=== PATIENT | male | born 1980 | race Caucasian/White ===

== ENCOUNTER 2020-05-18 14:26 | Emergency (ER) | payer MEDICARE ==
[~2020-05-18] VITALS: Ht 175.3 cm; Wt 65.9 kg
[2020-05-18 14:28] VITALS: BP 138/79
[2020-05-18] MEDS ORDERED: IBUP-1506 PO (14:33)
== END 2020-05-18 17:49 | disposition home or self-care (01) ==
LOC: EMS 14:34
DX: F41.9 Anxiety disorder, unspecified (principal); Z59.0 Homelessness; F17.210 Nicotine dependence, cigarettes, uncomplicated; F12.90 Cannabis use, unspecified, uncomplicated

== ENCOUNTER 2020-05-21 09:18 | Inpatient (IN) | payer MEDICARE ==
[~2020-05-21] VITALS: Ht 172.7 cm; Wt 62.9 kg
[~2020-05-21 09:18] MED LIST: IBUP-1506 PO
[2020-05-21] MEDS ORDERED: HALOPERIDOL 5 MG TABLET PO PRN (10:45)
[2020-05-21] MEDS ORDERED: ZOLPIDEM TARTRATE 10 MG TABLET PO PRN (10:45)
[2020-05-21 11:46] VITALS: BP 122/69
[2020-05-21] MEDS ORDERED: INFLUENZA VIRUS VACCINE QVS 2020-21 (6MO+)/PF 60 MCG/0.5 ML SYRINGE IM ONE (12:00)
[2020-05-21 13:10] LABS: COVID AG,FIA SOURCE NASOPHARYNGEAL
[2020-05-21 14:50] VITALS: BP 143/76
[2020-05-21 16:18] VITALS: BP 123/73
[2020-05-21] MEDS: LORazepam 2 MG TABLET PO PRN (16:37)
[2020-05-21] MEDS ORDERED: NICOTINE POLACRILEX 2 MG LOZENGE PO PRN (21:45)
[2020-05-22 06:38] VITALS: BP 134/79
[2020-05-22 08:24] VITALS: BP 126/87
[2020-05-22] MEDS: LORazepam 2 MG TABLET PO PRN ×2 (08:42→16:55)
[2020-05-22 09:32] LABS: APPEARANCE,URINE CLEAR (CLEAR); BILIRUBIN,URINE NEGATIVE (NEGATIVE); GLUCOSE, URINE (UA) NEGATIVE (NEGATIVE); KETONES,URINE NEGATIVE (NEGATIVE); LEUKOCYTE ESTERASE ,URINE NEGATIVE (NEGATIVE); NITRATE,URINE NEGATIVE (NEGATIVE); OCCULT BLOOD,URINE NEGATIVE (NEGATIVE); PH,URINE 7.5 (5.0-8.0); PROTEIN,URINE NEGATIVE (NEGATIVE); UROBILINOGEN,URINE 0.2 mg/dL (<=1.0)
[2020-05-22 09:37] LABS: AMPHET/METH SCREEN,URINE NEGATIVE (NEGATIVE); BARBITURATE SCREEN, URINE NEGATIVE (NEGATIVE); BENZODIAZEPINES SCREEN,URINE NEGATIVE (NEGATIVE); CANNABINOID SCREEN,URINE POSITIVE (NEGATIVE); COCAINE SCREEN,URINE NEGATIVE (NEGATIVE); METHADONE SCREEN, URINE NEGATIVE (NEGATIVE); OPIATE SCREEN,URINE NEGATIVE (NEGATIVE)
[2020-05-22 09:59] LABS: PHENCYCLIDINE SCREEN,URINE NEGATIVE (NEGATIVE)
[2020-05-22] MEDS ORDERED: ACETAMINOPHEN 325 MG TABLET PO PRN (10:30)
[2020-05-22] MEDS ORDERED: NICOTINE 14 MG/24 HOUR PATCH TD PRN (10:30)
[2020-05-22] MEDS ORDERED: PETROLATUM,WHITE 28 GM JELLY TP PRN (10:30)
[2020-05-22] MEDS ORDERED: GuaiFENesin/D-METHORPHAN [SUGAR-FREE] 200-20MG/10 ML SYRUP UDCUP PO PRN (10:30)
[2020-05-22] MEDS ORDERED: ALBUTEROL SULFATE HFA 90 MCG/PUFF 8 GM INHALER IH PRN (10:30)
[2020-05-22] MEDS ORDERED: CloNIDine HCL 0.1 MG TABLET PO PRN (10:30)
[2020-05-22] MEDS ORDERED: MAG HYDROX/AL HYDROX/SIMETH ES 30 ML SUSPENSION UDCUP PO PRN (10:30)
[2020-05-22] MEDS ORDERED: MAGNESIUM HYDROXIDE SUSPENSION 30 ML UDCUP PO PRN (10:30)
[2020-05-22] MEDS ORDERED: ONDANSETRON HCL 4 MG TABLET PO PRN (10:30)
[2020-05-22] MEDS ORDERED: DOCUSATE SODIUM 100 MG CAPSULE PO PRN (10:30)
[2020-05-22] MEDS ORDERED: LOPERAMIDE HCL 2 MG CAPSULE PO PRN (10:30)
[2020-05-22] MEDS: ESCITALOPRAM OXALATE 10 MG TABLET PO SCH (13:14)
[2020-05-22 16:04] VITALS: BP 126/80
[2020-05-22] MEDS: IBUPROFEN 400 MG TABLET PO PRN (16:55)
[2020-05-23 05:32] VITALS: BP 120/82
[2020-05-23 07:41] LABS: BASOPHILS % (AUTO) 0.5 % (0.0-2.0); EOSINOPHILS % (AUTO) 0.9 % (1.0-6.0); HEMATOCRIT 45.4 % (41-53); HEMOGLOBIN 15.4 g/dL (13.5-17.5); LYMPHOCYTES # (AUTO) 1.7 K/uL (1.0-4.8); LYMPHOCYTES % (AUTO) 20.1 % (22.0-44.0); MEAN CORPUSCULAR HGB CONC 33.8 G/dL (31.0-37.0); MEAN CORPUSCULAR VOLUME 92 fL (80-100); MONOCYTES # (AUTO) 0.6 K/uL (0.1-1.0); MONOCYTES % (AUTO) 7.5 % (2.0-9.0); NEUTROPHILS # (AUTO) 5.9 K/uL (1.8-7.7); PLATELET COUNT (AUTO) 270 K/uL (150-450); RED BLOOD CELL COUNT(AUTO) 4.96 MIL/uL (4.50-5.90); RED CELL DISTRIBUTION WIDTH 14.1 % (11.5-14.5)
[2020-05-23 08:31] VITALS: BP 126/68
[2020-05-23 08:32] LABS: ALANINE AMINOTRANSFERASE 28 U/L (12-78); ALBUMIN 3.7 g/dL (3.4-5.0); ALKALINE PHOSPHATASE 116 U/L (46-116); ANION GAP 8 mmol/L (8-16); ASPARTATE AMINOTRANSFERASE 15 U/L (15-37); BILIRUBIN,TOTAL 0.5 mg/dL (0.1-1.0); CALCIUM, TOTAL 8.7 mg/dL (8.8-10.5); CARBON DIOXIDE 26 mmol/L (22-29); CHLORIDE 106 mmol/L (98-107); CHOL/HDL RATIO 5.7 (4.2-7.3); CHOLESTEROL 170 mg/dL (131-200); CREATININE 0.96 mg/dL (0.60-1.30); GLOMERULAR FILTR. RATE CALC > 60 mL/min (>60); GLUCOSE,RANDOM 95 mg/dL (70-110); HDL CHOLESTEROL 30 mg/dL (40-60); LDL CHOL (CALC.) 122 mg/dL (0-130); POTASSIUM 4.7 mmol/L (3.5-5.1); SODIUM SERUM 140 mmol/L (136-145); TOTAL PROTEIN, SERUM 6.8 g/dL (6.4-8.2); TRIGLYCERIDES 90 mg/dL (15-150); UREA NITROGEN, BLOOD 16 mg/dL (7-18)
[2020-05-23 08:54] LABS: FREE T4 (FREE THYROXINE) 0.85 ng/dL (0.76-1.46); THYROID STIMULATING HORMONE 1.35 uIU/mL (0.36-3.74)
[2020-05-23] MEDS: ESCITALOPRAM OXALATE 10 MG TABLET PO SCH (09:04)
[2020-05-23 16:09] VITALS: BP 137/83
[2020-05-24 06:35] VITALS: BP 128/78
[2020-05-24] MEDS: ESCITALOPRAM OXALATE 10 MG TABLET PO SCH (08:22)
[2020-05-24 08:42] VITALS: BP 126/77
[2020-05-24 16:07] VITALS: BP 119/78
[2020-05-25 00:09] VITALS: BP 115/71
[2020-05-25 08:11] VITALS: BP 139/77
[2020-05-25] MEDS: ESCITALOPRAM OXALATE 10 MG TABLET PO SCH (08:12)
[2020-05-25 16:15] VITALS: BP 130/82
[2020-05-25] MEDS: IBUPROFEN 400 MG TABLET PO PRN (16:15)
[2020-05-26 06:26] VITALS: BP 130/83
[2020-05-26 08:18] LABS: COVID AG,FIA SOURCE NASOPHARYNGEAL
[2020-05-26] MEDS: ESCITALOPRAM OXALATE 10 MG TABLET PO SCH (08:18)
[2020-05-26 08:21] VITALS: BP 132/82
[2020-05-26 16:10] VITALS: BP 131/82
[2020-05-26] MEDS: IBUPROFEN 400 MG TABLET PO PRN (16:12)
[2020-05-26 16:50] VITALS: BP 131/82
[2020-05-27 06:12] VITALS: BP 128/84
[2020-05-27 08:18] VITALS: BP 120/68
[2020-05-27] MEDS: ESCITALOPRAM OXALATE 10 MG TABLET PO SCH (08:37)
[2020-05-27] MEDS: IBUPROFEN 400 MG TABLET PO PRN ×2 (10:58→19:06)
[2020-05-27 16:32] VITALS: BP 134/86
[2020-05-27 18:52] VITALS: BP 133/77
[2020-05-28 08:19] VITALS: BP 132/65
[2020-05-28] MEDS: ESCITALOPRAM OXALATE 10 MG TABLET PO SCH (09:42)
[2020-05-28] MEDS: IBUPROFEN 400 MG TABLET PO PRN ×2 (10:52→18:59)
[2020-05-28 16:12] VITALS: BP 135/85
[2020-05-29 01:21] VITALS: BP 126/77
[2020-05-29] MEDS: MULTIVITAMINS WITH MINERALS, THERAPEUTIC TABLET PO SCH (08:17)
[2020-05-29] MEDS: ESCITALOPRAM OXALATE 10 MG TABLET PO SCH (08:17)
[2020-05-29 08:50] VITALS: BP 130/90
[2020-05-29] MEDS ORDERED: MULTIVITAMINS, THERAPEUTIC TABLET PO SCH (09:00)
[2020-05-29] MEDS ORDERED: OMEGA-3/DHA/EPA/FISH OIL 1,000 MG CAPSULE PO SCH (09:00)
[2020-05-29 14:10] VITALS: BP 128/84
[2020-05-29] MEDS: IBUPROFEN 400 MG TABLET PO PRN ×2 (14:24→22:24)
[2020-05-29 16:45] VITALS: BP 119/76
[2020-05-29 22:21] VITALS: BP 127/82
[2020-05-30 04:16] VITALS: BP 122/83
[2020-05-30 08:23] VITALS: BP 128/77
[2020-05-30] MEDS: ESCITALOPRAM OXALATE 10 MG TABLET PO SCH (09:13)
[2020-05-30] MEDS: MULTIVITAMINS WITH MINERALS, THERAPEUTIC TABLET PO SCH (09:13)
[2020-05-30] MEDS: LORazepam 2 MG TABLET PO PRN (09:16)
[2020-05-30 16:20] VITALS: BP 122/79
[2020-05-30] MEDS: IBUPROFEN 400 MG TABLET PO PRN (16:20)
[2020-05-31 06:43] VITALS: BP 117/77
[2020-05-31 08:42] VITALS: BP 125/76
[2020-05-31] MEDS: MULTIVITAMINS WITH MINERALS, THERAPEUTIC TABLET PO SCH (09:36)
[2020-05-31] MEDS: ESCITALOPRAM OXALATE 10 MG TABLET PO SCH (09:36)
[2020-05-31 16:06] VITALS: BP 130/78
[2020-05-31] MEDS: IBUPROFEN 400 MG TABLET PO PRN (16:06)
[2020-06-01 06:36] VITALS: BP 131/84
[2020-06-01 08:35] VITALS: BP 135/80
[2020-06-01] MEDS: ESCITALOPRAM OXALATE 10 MG TABLET PO SCH (08:54)
[2020-06-01] MEDS: MULTIVITAMINS WITH MINERALS, THERAPEUTIC TABLET PO SCH (08:55)
[2020-06-01 11:47] VITALS: BP 126/74
[2020-06-01] MEDS: IBUPROFEN 400 MG TABLET PO PRN ×2 (11:47→20:52)
[2020-06-01 16:38] VITALS: BP 131/73
[2020-06-01 20:53] VITALS: BP 126/81
[2020-06-02 00:51] VITALS: BP 134/90
[2020-06-02 08:19] LABS: COVID AG,FIA SOURCE NASOPHARYNGEAL
[2020-06-02] MEDS: ESCITALOPRAM OXALATE 10 MG TABLET PO SCH (08:24)
[2020-06-02] MEDS: MULTIVITAMINS WITH MINERALS, THERAPEUTIC TABLET PO SCH (08:24)
[2020-06-02 08:36] VITALS: BP 143/83
[2020-06-02] MEDS ORDERED: ESCI-8 PO (09:00)
== END 2020-06-02 12:13 | disposition home or self-care (01) | DRG 885 ==
LOC: B2X 10:50
DX: F33.2 Major depressive disorder, recurrent severe without psychotic features (principal); F79 Unspecified intellectual disabilities; R45.851 Suicidal ideations; G89.29 Other chronic pain; Z59.0 Homelessness; R00.0 Tachycardia, unspecified; Z20.822 Contact with and (suspected) exposure to COVID-19; M54.9 Dorsalgia, unspecified; F12.10 Cannabis abuse, uncomplicated; Z79.899 Other long term (current) drug therapy; Z28.21 Immunization not carried out because of patient refusal
CPT/HCPCS: 80307; 84439; 84443; 87426; A9575